=== PATIENT | female | born 1990 | race Caucasian/White ===

== ENCOUNTER → 2019-09-02 | Outpatient (CLI) | payer MEDICAID | END | disposition home or self-care (01) | LOC: LAB 08:21 | PROVIDERS: ATTEND Nurse Practitioner Women's Health | DX: O09.33 Supervision of pregnancy with insufficient antenatal care, third trimester (principal); Z3A.31 31 weeks gestation of pregnancy | CPT/HCPCS: 36415; 82951; 84439; 84443; 86592 ==

== ENCOUNTER → 2019-09-10 | Outpatient (CLI) | payer MEDICAID ==
--- NOTE | 2019-09-10 13:38 | DIREP ---
PROCEDURE:OBSTETRICAL ULTRASOUND, 2nd AND 3rd TRIMESTER TECHNIQUE:Transabdominal ultrasound of the pelvic contents was performed. COMPARISON:[facility], , US OB LIMITED, 08/16/2019, 04:53 PM. [facility], , US OB 2 3TRI ADDITIONAL GEST, 06/07/2019, 01:34 PM. INDICATIONS:IUP @ 32 WEEKS, TWINS TECHNIQUE: Transabdominal sonography of the gravid uterus was performed FINDINGS: Dichorionic diamniotic twin NUMBER:Twin A. POSITION:Transverse AMNIOTIC FLUID VOLUME:Largest vertical pocket - 5.5 cm (normal is 2-10 cm). PLACENTA:Posterior, with no evidence of placenta previa. CERVIX:3.1 cm length. HEART RATE:143 bpm BIPARIETAL DIAMETER:7.8 cm (31 W 4 D), 15.9 percentile HEAD CIRCUMFERENCE:28.6 cm (31 W 1 D), 4.5 percentile ABD CIRCUMFERENCE:28.3 cm (32 W 3 D), 50 percentile FEMUR LENGTH:5.7 cm (29 W 4 D), 1.8 percentile ESTIMATED WEIGHT:1767 gm (3 lb, 14oz), 17 percentile ULTRASOUND GA:31 W 2 D ULTRASOUND PRATIBHA:November 10, 2019 LMP: 01/27/19 CLINICAL GA: 32 W 2 D CLINICAL PRATIBHA: November 03, 2019 Survey anatomic evaluation was not performed. NUMBER:Twin B. POSITION:Cephalic AMNIOTIC FLUID VOLUME:Largest vertical pocket - 4.6 cm (normal is 2-10 cm). PLACENTA:Anterior, with no evidence of placenta previa. CERVIX:Length not measured. HEART RATE:139 bpm BIPARIETAL DIAMETER:8.2 cm (33 W 2 D), 62.9 percentile HEAD CIRCUMFERENCE:30.6 cm (33 W 4 D), 61.8 percentile ABD CIRCUMFERENCE:30.5 cm (34 W 4 D), 95 percentile FEMUR LENGTH:6.2 cm (31 W 6 D), 33.4 percentile ESTIMATED WEIGHT:2232 gm (4 lb, 15oz), 79 percentile ULTRASOUND GA:33 W 3 D ULTRASOUND PRATIBHA:October 26, 2019 LMP: 01/27/19 CLINICAL GA: 32 W 2 D CLINICAL PRATIBHA: November 03, 2019 Survey anatomic evaluation was not performed. CONCLUSION: Dichorionic diamniotic twin . FETUS_A: The fetus is in transverse presentation. Viable intrauterine . No anomalies detected on today's examination. biometrics suggest a gestational age of approximately 31 W 2 D, with an Estimated Weight (EFW) of 1767 gm (3 lb, 14oz). One or more growth percentiles falls outside the normal range (between 10 and 90%). FETUS_B: Viable intrauterine . No anomalies detected on today's examination. biometrics suggest a gestational age of approximately 33 W 3 D, with an Estimated Weight (EFW) of 2232 gm (4 lb, 15oz). One or more growth percentiles falls outside the normal range (between 10 and 90%). Dictated by: SAMANTHA Physician on 09/10/2019 at 12:49 PM bs
== END | disposition home or self-care (01) ==
LOC: RAD 10:03
PROVIDERS: ATTEND Nurse Practitioner Women's Health
DX: O30.043 Twin pregnancy, dichorionic/diamniotic, third trimester (principal); Z3A.33 33 weeks gestation of pregnancy
CPT/HCPCS: 76810; 76816

== ENCOUNTER → 2019-09-15 | Outpatient (CLI) | payer OTHER ==
--- NOTE | 2019-09-15 12:43 | DIREP ---
PROCEDURE:US BIOPHYSICAL PROFILE W/O NON STRESS COMPARISON:[facility], OB LIMITED, 09/10/2019, 10:10 AM. [facility], OB LIMITED, 08/16/2019, 04:53 PM. [facility], OB 2 3TRI ADDITIONAL GEST, 06/07/2019, 01:34 PM. INDICATIONS:TWINS FINDINGS: Dichorionic/Diamniotic twin pregnanc, though more obvious on previous examination y NUMBER: TWIN A Breathing:Normal, 2. Movement:Normal, 2. Tone:Normal, 2. Fluid:Normal, 2. Total: 8, 8 Position:Breech. Placenta:Posterior. No previa. Amniotic Fluid Volume:Largest vertical pocket: 3.7 cm, (normal is 2-8 cm). Cervix:Measures 3.1 cm. Heart Rate:136 bpm. LMP: 01/27/2019 Clinical GA: 33 weeks, 0 days Clinical PRATIBHA: November 03, 2019 anatomic survey was not performed. No abnormalities are seen. NUMBER: TWIN B Breathing:Normal, 2. Movement:Normal, 2. Tone:Normal, 2. Fluid:Normal, 2. Total: 8, 8 Position:Cephalic. Placenta:Anterior. No previa. Amniotic Fluid Volume:Largest vertical pocket: 7.4 cm, (normal is 2-8 cm). Cervix:Measures 3.1 cm. Heart Rate:139 bpm. LMP: 01/27/2019 Clinical GA: 33 weeks, 0 days Clinical PRATIBHA: November 03, 2019 anatomic survey was not performed. No abnormalities are seen. CONCLUSION:Live twin gestation. 04/15 biophysical profile for age fetus. Fetus A, breech, fetus B, cephalic. Concordant growth parameters. No previa. Dictated by: SAMANTHA Physician on 09/15/2019 at 12:15 PM ac
== END | disposition home or self-care (01) ==
LOC: RAD 10:13
PROVIDERS: ATTEND Nurse Practitioner Women's Health
DX: O30.043 Twin pregnancy, dichorionic/diamniotic, third trimester (principal); O99.283 Endocrine, nutritional and metabolic diseases complicating pregnancy, third trimester; O24.419 Gestational diabetes mellitus in pregnancy, unspecified control; O16.3 Unspecified maternal hypertension, third trimester; O32.1XX0 Maternal care for breech presentation, not applicable or unspecified; E03.9 Hypothyroidism, unspecified; Z3A.33 33 weeks gestation of pregnancy
CPT/HCPCS: 76819

== ENCOUNTER → 2019-09-22 | Outpatient (CLI) | payer MEDICAID, OTHER ==
--- NOTE | 2019-09-22 13:34 | PRM.PN ---
Assessment/Plan Assessment/Plan see dictated note # [id number] DAYNA LOVE DO Sep 22, 2019 13:34
--- NOTE | 2019-09-22 14:51 | DIREP ---
PROCEDURE:US BIOPHYSICAL PROFILE W/O NON STRESS COMPARISON:[facility], BIOPHYSICAL PROFILE W/O NON STRESS, 09/15/2019, 10:32 AM. [facility], OB LIMITED, 09/10/2019, 10:10 AM. [facility], OB LIMITED, 08/16/2019, 04:53 PM. [facility], OB 2 3TRI ADDITIONAL GEST, 06/07/2019, 01:34 PM. INDICATIONS:IUP @ 34 WEEKS, TWIN FINDINGS: Dichorionic/Diamniotic twin NUMBER: TWIN A Breathing:Normal, 2. Movement:Normal, 2. Tone:Normal, 2. Fluid:Normal, 2. Total: 8 , 8 Position:Breech. Placenta:Posterior. No previa. Amniotic Fluid Volume:Largest vertical pocket: 4.2 cm, (normal is 2-8 cm). Cervix:Normal transabdominal assessment. Heart Rate:147 bpm. Clinical GA: 34 weeks, 0 days Clinical PRATIBHA: November 03, 2019 biometric survey was not performed. anatomic survey was not performed. No abnormalities are seen. NUMBER: TWIN B Breathing:Normal, 2. Movement:Normal, 2. Tone:Normal, 2. Fluid:Normal, 2. Total: 8 , 8 Position:Cephalic. Placenta:Anterior. No previa. Amniotic Fluid Volume:Largest vertical pocket: 7.4 cm, (normal is 2-8 cm). Heart Rate:131 bpm. biometric survey was not performed. anatomic survey was not performed. No abnormalities are seen. CONCLUSION: 1. Live dichorionic diamniotic twin . Presenting twin is breech. 2. Twin A: BPP 8/8. 3. Twin B: BPP 8/8. Dictated by: SAMANTHA Physician on 09/22/2019 at 11:23 AM ac
--- NOTE | 2019-09-23 11:32 | PNH ---
DATE: 09/22/2019 TRIAGE PROGRESS NOTE HISTORY OF PRESENT ILLNESS: The patient presented to Labor and Delivery for her weekly nonstress test after having her biophysical profile completed. The patient is a 29-year-old G3, P0-0-2-0 with a di-di twin gestation @ 34.2 who has been seen at the [facility]. Her care started at 29 weeks. The patient has a significant history for a di-di twin gestation, hypothyroidism, chronic hypertension, diabetes, currently diet controlled, obesity, tobacco use and late care. The patient states her delaying care was secondary to her being in detention. She had not been taking medications for her thyroid for approximately 10 months prior to . She was recently started on thyroid medication during her care in either late August or early September. She was initially on lisinopril for chronic hypertension and she was changed to Procardia. She states that she was prediabetic before and was on Metformin, but she was not taking her Metformin. Her current blood sugar log that she has with her for approximately 1 week of results have elevated fasting blood sugars in the low 100s and intermittent abnormal for one hour postprandials. The patient is currently 34 weeks and 2 days. Vashti at the [facility], has attempted to transfer her care to [facility] as the patient lives in [place], but her initial [facility] visit will not be until 10/18/2019 which would put the patient at 38 weeks. This was my first time meeting the patient. She was in the room with her sister. She consented to have the discussion with her sister present. We discussed her twin gestation and recommendation for delivery. at 38 weeks without complications. Pt has multiple medical factors associated with her and will most likely be delivered between 36-38 weeks Also, discussed potential complications associated with a twin gestation along with considerations to be made for delivery. We reviewed [facility] protocol of delivering patients at 35 weeks and above. Prior to that if able, we would transfer to [place] and/or if unable to transfer the patient, would transfer infants. Therefore, I discussed with the patient that if she has rupture of membranes or thinks that she is in labor before that time that I would suggest her going to a hospital in [place]. The hospital will call for her records and information will be transferred for care and delivery. That will eliminate separation from her babies. There is always a chance that her infants may be transferred secondary to being multiples and medical history, or other. She could either choose to deliver her babies here or again transfer her care that week of her initial appointment and expect to have her delivery there that week. Currently, twin A is unstable lie. We discussed if the infant is not in vertex position at the time of delivery she would need a primary section. I do not have the biophysical profile report for today, but she is aware of delivery options at this time. We discussed potential risk and complications with delivery including hemorrhage, risk of anesthesia, known risk of surgery, bleeding, infection, damage to surrounding organs and need for additional surgeries. Also with twin gestations potential for transfer to a higher risk facility to do additional care if necessary and complications related to the patient's overall general health. We also discussed she is beyond the gestational time to do betamethasone. The lung maturity could also be an issue with delivery and history of diabetes. We also discussed the potential risks involved with her thyroid disorder as the patient has been untreated and has currently been on medication for approximately 3 weeks. We discussed medication follow up every 6-8 weeks when starting a new thyroid medication and followup as well. In regards to her abnormal blood sugars, we reviewed her diet and exercise regimen. She is to record her blood sugars for the next few days to try to modify her abnormal fasting levels. If she is unable to control, we discussed the potential to adding on insulin. The patient states she smokes half a pack of cigarettes a day. We discussed risk of smoking in and cessation was encouraged. Risk of pre-eclampsia were reviewed along with her current blood pressures and medication, signs and symptoms were reviewed and the patient is to call or come into the hospital closest to her if she has symptoms. The patient and her sister were able to ask questions during the conversation. I believe they had a good understanding. She has been having difficulty with seeing me in the office. I discussed that will be taken care of later on today. I expect to see the patient weekly in the office and we will adjust her plan of care accordingly. She is to follow up with her weekly biophysical profiles and nonstress test and she will be discharged home today. Alia Ureña DO DR: WHITNEY/mayur JOB# [id number] STEFFEN
== END | disposition home or self-care (01) ==
LOC: RAD 09:53
PROVIDERS: ATTEND Nurse Practitioner Women's Health
DX: O30.043 Twin pregnancy, dichorionic/diamniotic, third trimester (principal); O32.1XX0 Maternal care for breech presentation, not applicable or unspecified; Z3A.34 34 weeks gestation of pregnancy
CPT/HCPCS: 59025; 76819

== ENCOUNTER → 2019-09-29 | Outpatient (CLI) | payer OTHER ==
[2019-09-29 11:15] LABS: BASOPHIL % 0.3 % (0.0-0.2); EOSINOPHIL # 0.1 10^3/uL (0.0-0.2); EOSINOPHIL % 1.5 % (0.0-5.0); LYMPHOCYTES # 1.7 10^3/uL (1.0-4.8); LYMPHOCYTES % 19.4 % (24.0-44.0); MEAN CORP HGB 27.4 pg (26-34); MONOCYTES # 0.9 10^3/uL (0.3-0.8); MONOCYTES % 10.2 % (5.0-12.0); NEUTROPHIL # 5.8 10^3/uL (1.8-7.7); NEUTROPHILS % 66.7 % (41.0-85.0); RED CELL DISTRIBUTION WIDTH 16.2 % (11.5-14.5)
--- NOTE | 2019-09-29 15:30 | DIREP ---
PROCEDURE:US BIOPHYSICAL PROFILE W/O NON STRESS COMPARISON:[facility], BIOPHYSICAL PROFILE W/O NON STRESS, 09/22/2019, 10:15 AM. [facility], BIOPHYSICAL PROFILE W/O NON STRESS, 09/15/2019, 10:32 AM. [facility], OB LIMITED, 09/10/2019, 10:10 AM. [facility], OB LIMITED, 08/16/2019, 04:53 PM. [facility], OB 2 3TRI ADDITIONAL GEST, 06/07/2019, 01:34 PM. INDICATIONS:IUP @ 35 WEEKS, TWIN FINDINGS: Dichorionic/Diamniotic Twin NUMBER: TWIN A Breathing:Normal, 2. Movement:Normal, 2. Tone:Normal, 2. Fluid:Normal, 2. Total: 8 , 8 Position:Breech. Placenta:Posterior. No previa. Amniotic Fluid Volume:LVP: 8.6 cm, (normal is 2-8 cm). Mild polyhydramnios. Cervix:Normal transabdominal assessment. Heart Rate:144 bpm. Clinical GA: 35 weeks, 0 days Clinical PRATIBHA: November 03, 2019 biometric survey was not performed. anatomic survey was not performed. No abnormalities are seen. NUMBER: TWIN B Breathing:Normal, 2. Movement:Normal, 2. Tone:Normal, 2. Fluid:Normal, 2. Total: 8 , 8 Position:Cephalic. Placenta:Anterior. No previa. Amniotic Fluid Volume:LVP: 6.1 cm, (normal is 2-8) cm. Heart Rate:148 bpm. biometric survey was not performed. anatomic survey was not performed. No abnormalities are seen. CONCLUSION: 1. Live dichorionic diamniotic twin . Presenting twin is breech. 2. Twin A: BPP 8/8. 3. Twin B: BPP 8/8. 4. Mild polyhydramnios Twin A. Dictated by: SAMANTHA Physician on 09/29/2019 at 02:01 PM ac
== END | disposition home or self-care (01) ==
LOC: RAD 10:39
PROVIDERS: ATTEND Nurse Practitioner Women's Health
DX: O30.043 Twin pregnancy, dichorionic/diamniotic, third trimester (principal); O32.1XX0 Maternal care for breech presentation, not applicable or unspecified; O09.33 Supervision of pregnancy with insufficient antenatal care, third trimester; Z3A.35 35 weeks gestation of pregnancy
CPT/HCPCS: 36415; 76819; 85025; 86318; 86592; 87081